=== PATIENT | female | born 1955 | race Caucasian/White ===

== ENCOUNTER 2019-03-15 20:20 | Emergency (ER) | payer OTHER ==
[2019-03-15] MEDS: IBUPROFEN 600 MG TAB PO (20:50)
[2019-03-15] MEDS: DIPHTH/TET/ACEL PERTUSS (ADULT) 0.5 ML VIAL IM* (20:50)
[2019-03-15] MEDS: LIDOCAINE 2% (MDV) 20 ML INJ INJ (20:51)
== END 2019-03-15 22:15 | disposition home or self-care (01) ==
LOC: FTE 20:20
DX: S61.215A Laceration without foreign body of left ring finger without damage to nail, initial encounter (principal); W26.0XXA Contact with knife, initial encounter; Y92.030 Kitchen in apartment as the place of occurrence of the external cause; Z23 Encounter for immunization
CPT/HCPCS: 12001; 73140; 90471; 90715; 99283-25